=== PATIENT | female | born 1945 | race Caucasian/White ===

== ENCOUNTER 2016-05-22 10:30 | Observation (INO) | payer OTHER ==
[~2016-05-22] VITALS: Ht 160 cm; Wt 90.7 kg
[~2016-05-22 10:30] MED LIST: ASPI-1093 PO; FLUO40CA PO; LORA-476 PO; LOSA50TA39 PO; METF1000 PO; METF500T4 PO; OMEP40EC1 PO; SIMV40TA1 PO; VITA-144 PO
[2016-05-22 10:54] VITALS: BP 133/69
--- NOTE | 2016-05-22 10:59 | NUR ---
PATIENT AMBULATED TO ER BED 5.
--- NOTE | 2016-05-22 10:59 | NUR ---
70/F BIB FAMILY C/O MECHANICAL FALL AT HOME YESTERDAY AND NOW C/O LEFT ARM, HEADACHE & BILAT KNEES PAIN. PT STATES SHE HIT HER HEAD AFTER SHE FELL, BUT SHE ALSO HAD A FALL 1 YEAR AGO DURING WHICH SHE HIT HER HEAD AND FEELS THE SAME PAIN. HX DM, HTN, OSTEOPOROSIS.PT DENIES LOC. PT DENIES N/V/D; SKIN IS PINK/WARM/DRY; AAOX4 WITH EVEN AND STEADY GAIT; LUNGS CLEAR BL; HR EVEN AND REGULAR; PT DENIES ANY FEVER, CP, SOB, OR COUGH AT THIS TIME; PATIENT STATES PAIN OF 8/10 AT THIS TIME; VSS; PATIENT POSITIONED FOR COMFORT; HOB ELEVATED; BEDRAILS UP X2; BED DOWN. ER MD MADE AWARE OF PT STATUS.
--- NOTE | 2016-05-22 11:03 | NUR ---
Patient being evaluated by physician at bedside.
[2016-05-22] MEDS ORDERED: fentaNYL 0.05 MG/ML VIAL IVP ONE (11:10)
--- NOTE | 2016-05-22 11:20 | NUR ---
Patient appears to be resting comfortably in bed. Respirations even and unlabored.WILL CONTINUE TO MONITPR
--- NOTE | 2016-05-22 11:33 | NUR ---
PT ARRIVED TO UNIT FROM ER VIA GURNEY. PT IS AAOX4, ON ROM AIR, IV TO RIGHT AC 20G PATENT AND INTACT. SKIN INTACT. PT STATES NO CHEST PAIN AT THIS TIME. INITIAL ASSESSMENT COMPLETED. ORIENTED PT TO ROOM AND ENVIRONMENT. DISCUSSED PLAN OF CARE WITH PT, PT VERBALIZED UNDERSTANDING. ALL NEEDS MET. CALL LIGHT WITHIN MADDIE Addendum: 05/22/16 at 1338 by Ladonna Logan RN CALL LIGHT WITHIN REACH. WILL CONTINUE TO MONITOR.
[2016-05-22 11:42] LABS: BASOPHILS # (AUTO) 0.1 K/uL (0.00-0.22); BASOPHILS % (AUTO) 2.7 % (0.0-2.0); EOSINOPHILS # (AUTO) 0.1 K/uL (0-0.4); HEMATOCRIT 34.7 % (36-48); HEMOGLOBIN 11.1 g/dL (12.0-16.0); LYMPHOCYTES # (AUTO) 1.3 K/uL (2.5-16.5); LYMPHOCYTES % (AUTO) 26.2 % (20.5-51.1); MEAN CORPUSCULAR HEMOGLOBIN 26 pg (27-31); MEAN CORPUSCULAR HGB CONC 32 g/dL (33-37); MEAN CORPUSCULAR VOLUME 82 fL (80-94); MONOCYTES # (AUTO) 0.5 K/uL (0.8-1.0); MONOCYTES % (AUTO) 10.2 % (1.7-9.3); NEUTROPHILS # (AUTO) 3.1 K/uL (1.8-7.7); NEUTROPHILS % (AUTO) 58.9 % (42.2-75.2); PLATELET COUNT (AUTO) 230 K/uL (140-450); RED BLOOD CELL COUNT(AUTO) 4.21 MIL/uL (4.20-5.40); RED CELL DISTRIBUTION WIDTH 14.8 % (11.6-13.7); WHITE BLOOD COUNT (AUTO) 5.1 K/uL (4.8-10.8)
[2016-05-22 11:50] LABS: ANION GAP 11.3 (8-16); CARBON DIOXIDE 30.5 mmol/L (21-32); CREATININE 0.8 mg/dL (0.6-1.3); POTASSIUM 3.8 mmol/L (3.5-5.1)
[2016-05-22 11:56] LABS: ALBUMIN 3.7 g/dL (3.4-5.0); INR 1.1 (0.8-1.2); PARTIAL THROMBOPLASTIN TIME 26.1 secs (22-35.6); PROTHROMBIN TIME 10.5 secs (10.8-13.4); TOTAL BILIRUBIN 0.2 mg/dL (0.0-1.0); TOTAL PROTEIN, SERUM 7.2 g/dL (6.4-8.2)
[2016-05-22] MEDS ORDERED: MORPHINE SULFATE 2 MG/ML SYR IVP PRN (12:40)
[2016-05-22] MEDS ORDERED: MORPHINE SULFATE 4 MG/ML SYR IVP PRN (12:40)
[2016-05-22] MEDS ORDERED: ONDANSETRON 4 MG/2 ML VIAL IVP PRN (12:40)
[2016-05-22] MEDS ORDERED: INSULIN LISPRO SLIDING SCALE 100 UNITS/ML VIAL SUBQ PRN (13:00)
[2016-05-22] MEDS ORDERED: DEXTROSE 50% 50 ML SYR IVP PRN (13:00)
--- NOTE | 2016-05-22 13:00 | NUR ---
CALL TO REPORT PT. SHARI GREENWOOD WILL CALL BACK IN 5 MINS
--- NOTE | 2016-05-22 13:16 | NUR ---
Patient will be admitted to care of QUINCY. Admited to TELE. Will go to [id number]. Belongings list completed. Report to
--- NOTE | 2016-05-22 13:25 | NUR ---
CHECKED IN ON PT, ALL NEEDS MET. FAMILY AT BEDSIDE. CALL LIGHT WITHIN RAECH. WILL CONTINUE TO MONITOR.
[2016-05-22 13:30] VITALS: BP 145/70
[2016-05-22 15:52] VITALS: BP 148/62
--- NOTE | 2016-05-22 16:05 | NUR ---
PT CURRENTLY RESTING IN BED. ALL NEEDS MET. CALL LIGHT WITHIN REACH. WILL CONTINUE TO MONITOR.
[2016-05-22] MEDS ORDERED: metFORMIN 500 MG TAB PO SCH (17:00)
[2016-05-22] MEDS: BLOOD GLUCOSE MONITORING 1 DEV DEV FS SCH ×2 (17:01→21:00)
--- NOTE | 2016-05-22 18:05 | NUR ---
PT CURRENTLY VISITING WITH FAMILY. PT STATES NO CHEST PAIN. ALL NEEDS MET. CALL LIGHT WITHIN REACH.
--- NOTE | 2016-05-22 19:32 | NUR ---
ENDORSED PLAN OF CARE TO NIGHT NURSE. PT IN STABLE CONDITION.
[2016-05-22 20:00] VITALS: BP 139/59
--- NOTE | 2016-05-22 20:10 | NUR ---
SEEN PT AWAKE, ALERT AND ORIENTED, APPEARS COMFORTABLE. INITIAL ASSESSMENT. VITAL SIGNS CHECKED. PT DENEIS ANY DISCOMFORT OR CHEST PAIN AT THIS TIME. PT UP AND ABOUT IN HER ROOM. PLAN OF CARE DISCUSSED. PT VERBALIZED UNDERSTANDING. SAFETY ENSURED. CALL LIGHT W/IN REACH.
[2016-05-22] MEDS ORDERED: SIMVASTATIN 40 MG TAB PO SCH (21:00)
--- NOTE | 2016-05-22 21:00 | NUR ---
BLOOD SUGAR CHECKED:118. NO COVERAGE NEEDED. PT GIVEN SHARON CRACKERS FOR SNACKS.
[2016-05-22] MEDS ORDERED: LORazepam 1 MG TAB PO SCH ×2 (23:00→23:30)
--- NOTE | 2016-05-22 23:30 | NUR ---
PT GIVEN ATIVAN PO ORDERED FOR SLEEP. PT TAKES IT AT HOME. EXTRA PILLOW GIVEN PER REQUEST. PT DENIES ANY DISCOMFORT. WILL CONTINUE TO MONITOR.
[2016-05-23] VITALS: BP 131/71
--- NOTE | 2016-05-23 02:00 | NUR ---
SEEN PT SLEEPING SOUNDLY ON HER SIDE. CALL LIGHT W/IN REACH.
[2016-05-23 04:00] VITALS: BP 131/67
--- NOTE | 2016-05-23 04:15 | NUR ---
SEEN PT AWAKE. VITAL SIGNS CHECKED. PT DENIES ANY DISCOMFORT. PT ASKED FOR UNDERWEAR. PT GIVEN KOTEX WELL. CALL LIGHT W/IN REACH.
[2016-05-23 06:27] LABS: CHOL/HDL RATIO 2.5 (1-4.5)
[2016-05-23 06:28] LABS: ANION GAP 8.5 (8-16); CALCIUM 8.7 mg/dL (8.5-10.1); CARBON DIOXIDE 31.2 mmol/L (21-32); CREATININE 0.8 mg/dL (0.6-1.3); POTASSIUM 3.7 mmol/L (3.5-5.1)
[2016-05-23] MEDS ORDERED: PANTOPRAZOLE 40 MG TABEC PO SCH (06:30)
[2016-05-23 06:35] LABS: MAGNESIUM 1.8 mg/dL (1.8-2.4); PHOSPHORUS 3.6 mg/dL (2.5-4.9)
[2016-05-23 06:40] LABS: BASOPHILS # (AUTO) 0.1 K/uL (0.00-0.22); BASOPHILS % (AUTO) 1.6 % (0.0-2.0); EOSINOPHILS # (AUTO) 0.1 K/uL (0-0.4); EOSINOPHILS % (AUTO) 2.1 % (0.0-4.0); HEMATOCRIT 33.1 % (36-48); HEMOGLOBIN 10.6 g/dL (12.0-16.0); LYMPHOCYTES # (AUTO) 1.3 K/uL (2.5-16.5); MEAN CORPUSCULAR HEMOGLOBIN 26 pg (27-31); MEAN CORPUSCULAR HGB CONC 32 g/dL (33-37); MEAN CORPUSCULAR VOLUME 81 fL (80-94); MONOCYTES # (AUTO) 0.5 K/uL (0.8-1.0); MONOCYTES % (AUTO) 13.9 % (1.7-9.3); NEUTROPHILS # (AUTO) 1.8 K/uL (1.8-7.7); NEUTROPHILS % (AUTO) 49.4 % (42.2-75.2); PLATELET COUNT (AUTO) 201 K/uL (140-450); RED BLOOD CELL COUNT(AUTO) 4.07 MIL/uL (4.20-5.40); RED CELL DISTRIBUTION WIDTH 14.6 % (11.6-13.7); WHITE BLOOD COUNT (AUTO) 3.8 K/uL (4.8-10.8)
[2016-05-23] MEDS: BLOOD GLUCOSE MONITORING 1 DEV DEV FS SCH ×2 (06:41→11:29)
--- NOTE | 2016-05-23 07:15 | NUR ---
RECEIVED REPORT FROM THE [employer] PRESS LABORER NURSE AT BEDSIDE FOR CONTINUITY OF CARE. PT IS AWAKE AND ALERT AND ORIENTED. PT STATED SHE SLEPT WELL LAST NIGHT. PT HAS NO COMPLAINTS AT THIS MOMENT. NOTED THE IV ON R AC 20G SL. PT IS STRICT I AND O. PER [employer] PRESS LAB[employer]ER, PT IS AMBULATORY TO THE BATHROOM.
--- NOTE | 2016-05-23 07:35 | NUR ---
PTS V/S IS WITHIN NORMAL RANGE. DENIES PAIN.
[2016-05-23 08:00] VITALS: BP 141/65
--- NOTE | 2016-05-23 08:14 | NUR ---
FNS REFERRAL RECEIVED ON 05/22/16 FOR "NOT APPLICABLE." THIS DOES NOT MEET HIGH NUTRITIONAL RISK CRITERIA. PATIENT HAS BEEN SCREENED AND CATEGORIZED MODERATE NUTRITION RISK. PATIENT WILL BE SEEN WITHIN 3-5 DAYS OF ADMISSION. 05/25/16-05/27/[address]
[2016-05-23] MEDS ORDERED: VITAMIN E PO SCH (09:00)
[2016-05-23] MEDS ORDERED: FLUOXETINE HYDROCHLORIDE PO SCH (09:00)
[2016-05-23] MEDS ORDERED: ASPIRIN PO SCH (09:00)
[2016-05-23] MEDS ORDERED: FLUoxetine 20 MG CAP PO SCH (09:00)
[2016-05-23] MEDS ORDERED: LORazepam 1 MG TAB PO SCH ×2 (09:00→21:00)
[2016-05-23] MEDS ORDERED: NON-FORMULARY ITEM (Omeprazole* (Prilosec*) 40 MG) PO SCH (09:00)
[2016-05-23] MEDS ORDERED: ECOTRIN 81 MG TABEC PO SCH (09:00)
[2016-05-23] MEDS ORDERED: LOSARTAN 50 MG TAB PO SCH (09:00)
[2016-05-23] MEDS ORDERED: metFORMIN 500 MG TAB PO SCH (09:00)
--- NOTE | 2016-05-23 09:30 | NUR ---
ADMINISTERED MORNING MEDS. PT TOLERATED WELL. PT WAS WONDERING WHEN DR. BROWN WILL BE HERE. I TOLD HER I AM NOT CERTAIN BUT HE WILL BE HERE FOR THE CONSULT. WILL CONTINUE TO MONITOR PT.
--- NOTE | 2016-05-23 10:48 | NUR ---
PT AMBULATING IN THE HALLS. ASKED FOR A PAIR OF CLEAN UNDERWEAR. GAVE HER A PAIR. PT AMBULATED BACK TO ROOM AND BACK TO BED. WILL CONTINUE TO MONITOR PT.
[2016-05-23 12:00] VITALS: BP 102/68
--- NOTE | 2016-05-23 12:20 | NUR ---
DR. BROWN WANTS TO ORDER A CLARIBEL STRESS TEST FOR TOMORROW AT 1230. ORDER PUT IN. PT NOTIFIED THAT SHE WILL BE NPO AFTER MIDNIGHT AND CLARIBEL STRESS TEST TOMORROW. NO CAFFEINE STARTING TODAY. PT VERBALIZED UNDERSTANDING.
--- NOTE | 2016-05-23 13:54 | NUR ---
SPOKE TO PT. PT STATED THAT SHE REFUSED THE CLARIBEL SCAN BECAUSE SHE HAD ONE ABOUT A YEAR AGO AND IT WAS NORMAL. SHE IS FEELING BETTER SO SHE WANTS TO BE DISCHARGE TODAY. WILL WAIT ON DR. MATHEW AND SEE WHAT HE SAYS. HER DAUGHTER CAN PICK HER UP AFTER WORK AROUND 6PM. I TOLD HER, WHEN DR. MATHEW D/C'S HER, WE CAN WORK AROUND HER DAUGHTER'S SCHEDULE. NO COMPLAINTS. NO SIGNS OF DISTRESS. WILL CONTINUE TO MONITOR PT.
--- NOTE | 2016-05-23 15:40 | NUR ---
DR. MATHEW IS HERE. TO SEE PT. WAITING FOR DC. PT IS SLEEPING. WILL KEEP MONITORING PT.
--- NOTE | 2016-05-23 17:50 | NUR ---
GAVE PT DISCHARGE INSTRUCTIONS. ANSWERED ALL QUESTIONS. PT VERBALIZED UNDERSTANDING. PT SIGNED ALL APPROPRIATE FORMS. REMOVED ALL ARM BANDS, TELE MONITOR, IV CANNULA INTACT. PT TOLERATED WELL. PT IS IN HER PERSONAL CLOTHES. ALL HER PERSONAL BELONGING IN BAG, ALL READY TO LEAVE. DAUGHTER WILL BE HERE SOON. WILL LET ME KNOW.
--- NOTE | 2016-05-23 18:08 | NUR ---
PT WHEELED OUT BY [place]. PT IN STABLE CONDITION. ALL PERSONAL BELONGINGS WITH HER. DAUGHTER WAITING IN THE TURN ABOUT IN FRONT OF THE HOSPITAL.
[2016-05-24] MEDS ORDERED: VITAMIN E 400 IU CAPLF PO SCH (09:00)
[2016-05-24] MEDS ORDERED: VITAMIN E PO SCH (09:00)
[2016-05-24] MEDS ORDERED: VITAMIN E 400 MG PO SCH (09:00)
[2016-05-24] MEDS ORDERED: REGADENOSON 0.4 MG/5 ML SYR IV SCH (12:30)
== END 2016-05-23 18:08 | disposition home or self-care (01) ==
LOC: MED 10:30 → MMU 12:39 → MTU 19:34
PROVIDERS: ADMIT Internal Medicine Pulmonary Disease; ATTEND Internal Medicine Pulmonary Disease
DX: R07.89 Other chest pain (principal); S09.90XA Unspecified injury of head, initial encounter; E11.9 Type 2 diabetes mellitus without complications; I10 Essential (primary) hypertension; E78.5 Hyperlipidemia, unspecified; M19.90 Unspecified osteoarthritis, unspecified site; K21.9 Gastro-esophageal reflux disease without esophagitis; W19.XXXA Unspecified fall, initial encounter; Y93.89 Activity, other specified; Y92.89 Other specified places as the place of occurrence of the external cause; Y99.8 Other external cause status
CPT/HCPCS: 36415; 70450; 71010; 80048; 80053; 80061; 82948; 83036; 83735; 83880; 84100; 84484; 85025; 85610; 85730; 87081; 93005; 93307; 96372; 96374; 99285; G0378; J1815; J3010; Q0092

== ENCOUNTER 2017-06-07 10:26 | Inpatient (IN) | payer OTHER ==
[~2017-06-07] VITALS: Ht 160 cm; Wt 94.8 kg
[2017-06-07 10:30] VITALS: BP 143/85
[2017-06-07] MEDS ORDERED: NITROGLYCERIN 2% 1 GM PKT TP ONE (10:30)
[2017-06-07] MEDS ORDERED: NACL 0.9% 1,000 ML IV ONE (10:30)
[2017-06-07] MEDS ORDERED: ASPIRIN 81 MG TAB.CHEW PO ONE (10:30)
--- NOTE | 2017-06-07 10:30 | NUR ---
Patient transferred to bed 3 via wheelchair by tech. RN evaluating patient at bedside.
--- NOTE | 2017-06-07 10:32 | NUR ---
71/f bib daughter with C/O INTERMITTENT UNPROVOKED NON RADIATING CHEST PAIN X 2 WKS DIZZINESS X 2 DAYS ---ADDS SHE HAD MECHANICAL FALL AT HOME 3 time in 1 MONTH AGO, HEAD INJURY. denies loc. HX---CAD, HTN, DM, RA, OSTEOPOROSIS, OD BLIND, ANXIETY RX---LOSARTAN 10MG, METFORMIN 850MG, ATIVAN 2MG, Atorvastatin, TYLENOL. SKIN IS PINK/WARM/DRY; AAOX4 WITH EVEN AND STEADY GAIT; LUNGS CLEAR BL. PT DENIES ANY FEVER, CP, SOB, OR COUGH AT THIS TIME; PATIENT STATES PAIN OF 0/10 AT THIS TIME; VSS; PATIENT POSITIONED FOR COMFORT; HOB ELEVATED; BEDRAILS UP X2; BED DOWN. ER MD MADE AWARE OF PT STATUS.
--- NOTE | 2017-06-07 10:49 | NUR ---
Dr. Pinto evaluating patient at bedside.
[2017-06-07 10:58] LABS: BASOPHILS % (AUTO) 0.8 % (0.0-2.0); EOSINOPHILS # (AUTO) 0.1 K/uL (0-0.4); EOSINOPHILS % (AUTO) 1.7 % (0.0-4.0); HEMATOCRIT 33.5 % (36-48); HEMOGLOBIN 10.7 g/dL (12.0-16.0); LYMPHOCYTES # (AUTO) 1.1 K/uL (2.5-16.5); LYMPHOCYTES % (AUTO) 28.1 % (20.5-51.1); MEAN CORPUSCULAR HEMOGLOBIN 25 pg (27-31); MEAN CORPUSCULAR HGB CONC 32 g/dL (33-37); MONOCYTES # (AUTO) 0.4 K/uL (0.8-1.0); MONOCYTES % (AUTO) 10.2 % (1.7-9.3); NEUTROPHILS # (AUTO) 2.4 K/uL (1.8-7.7); NEUTROPHILS % (AUTO) 59.2 % (42.2-75.2); PLATELET COUNT (AUTO) 243 K/uL (140-450); RED CELL DISTRIBUTION WIDTH 16.8 % (11.6-13.7); WHITE BLOOD COUNT (AUTO) 4.1 K/uL (4.8-10.8)
[2017-06-07 11:07] LABS: ANION GAP 11.9 (8-16); CARBON DIOXIDE 27.9 mmol/L (21-32); CHLORIDE 102 mmol/L (98-107); CREATININE 0.8 mg/dL (0.6-1.3); GLUCOSE 165 mg/dL (74-106); POTASSIUM 3.8 mmol/L (3.5-5.1); SODIUM SERUM 138 mmol/L (136-145); UREA NITROGEN, BLOOD 11 mg/dL (7-18)
--- NOTE | 2017-06-07 11:10 | NUR ---
PT TAKEN TO CT VIA GURJAQUI ACCOMPANIED BY [employer].
[2017-06-07 11:11] LABS: PROTHROMBIN TIME 10.6 secs (10.8-13.4)
[2017-06-07 11:13] LABS: ALBUMIN 3.5 g/dL (3.4-5.0); ASPARTATE AMINOTRANSFERASE 34 U/L (15-37); TOTAL BILIRUBIN 0.2 mg/dL (0.0-1.0)
--- NOTE | 2017-06-07 12:57 | NUR ---
Patient appears to be resting comfortably in bed. BP 140/62, PULSE OX 96%, Respirations even and unlabored. C/O CHEST PAIN 04/19 BUT DON'T WANT PAIN MED AT THIS TIME. WILL CONTINUE TO MONITOR.
--- NOTE | 2017-06-07 15:00 | NUR ---
Patient will be admitted to care of DR POMPA. Admited to TELE. Will go to room 119A. Belongings list completed. Report to SELVIN MCCARTHY.
[2017-06-07 15:10] VITALS: BP 141/48
--- NOTE | 2017-06-07 15:10 | NUR ---
PATIENT WAS TRANSFERRED FROM ER. REPORT WAS GIVEN AT BEDSIDE. VS IS TAKEN, MRSA WAS SWABBED. PATIENT IS AWAKE, ALERT. RESPIRATION EVEN, UNLABOR ON ROOM AIR. SKIN DRY AND WARM. IV PATENT AND INTACT. DENIED CHEST PAIN, SOB AT THIS TIME. PATIENT WAS ORIENTED TO ROOM, STAFF, AND CALL LIGHT. PLAN OF CARE WAS DISCUSSED WITH PATIENT. BED AT LOW POSITION, SIDE RAILS UP. CALL LIGHT WITHIN REACH
[2017-06-07] MEDS ORDERED: ACETAMINOPHEN 325 MG TAB PO PRN (16:00)
[2017-06-07] MEDS ORDERED: MORPHINE SULFATE 4 MG/ML SYR IVP PRN (16:00)
[2017-06-07] MEDS ORDERED: ONDANSETRON 4 MG/2 ML VIAL IVP PRN (16:00)
[2017-06-07] MEDS ORDERED: INSULIN LISPRO SLIDING SCALE 100 UNITS/ML VIAL SUBQ PRN (16:05)
[2017-06-07] MEDS: BLOOD GLUCOSE MONITORING 1 DEV DEV FS SCH ×2 (16:11→20:11)
[2017-06-07] MEDS: metFORMIN 500 MG TAB PO SCH (16:43)
--- NOTE | 2017-06-07 17:00 | NUR ---
PATIENT AWAKE, ALERT. RESPIRATION EVEN, UNLABOR ON ROOM AIR. DR. GREENFIELD IS AT BEDSIDE. NO DISTRESS NOTED AT THIS TIME. MED WAS GIVEN PER ORDER. CALL LIGHT WITHIN REACH
--- NOTE | 2017-06-07 18:43 | NUR ---
PATIENT AWAKE, ALERT. RESPIRATION EVEN, UNLABOR ON ROOM AIR. DENIED CHEST PAIN, SOB. NO DISTRESS NOTED AT THIS TIME. IV PATENT AND INTACT. CALL LIGHT WITHIN REACH
--- NOTE | 2017-06-07 19:24 | NUR ---
ENDORSEMENT GIVEN TO HEALTH TECH NURSE. PATIENT IS STABLE AT THIS TIME
--- NOTE | 2017-06-07 19:25 | NUR ---
RECEIVED REPORT FROM DAY SHIFT NURSE LINDA-SHARI. PT AOX4, ON ROOM AIR, IV RIGHT AC #20G SALINE LOCK. RIGHT EYE BLINDNESS. PT ABLE TO AMBULATE. NO S/S OF RESPIRATORY DISTRESS OR DISCOMFORT AT THIS TIME. DISCUSSED PLAN OF CARE AND PT VERBALIZED UNDERSTANDING. UPDATED WHITEBOARD. BED IN LOWEST POSITION, BED BREAKS LOCKED. BED SIDE TABLE AND CALL LIGHT WITHIN REACH. WILL CONTINUE TO MONITOR.
[2017-06-07 19:27] LABS: CREATINE KINASE MB 0.6 ng/mL (0-3.6)
[2017-06-07 20:00] VITALS: BP 137/58
--- NOTE | 2017-06-07 20:11 | NUR ---
BLOOD GLUCOSE 105. NO INSULIN GIVEN. SNACKS PROVIDED. WILL CONTINUE TO MONITOR.
--- NOTE | 2017-06-07 20:30 | NUR ---
SCHEDULED MEDICATIONS GIVEN. PT C/O HEADACHE AND TYLENOL WAS GIVEN. WILL CONTINUE TO MONITOR.
[2017-06-07] MEDS ORDERED: SIMVASTATIN 40 MG TAB PO SCH (21:00)
--- NOTE | 2017-06-07 22:30 | NUR ---
PT SLEEPING AT THIS TIME. WILL CONTINUE TO MONITOR.
[2017-06-08] VITALS: BP 118/42
--- NOTE | 2017-06-08 | NUR ---
VITAL SIGNS TOLERATED WELL. PT CONTINUES TO SLEEP. WILL CONTINUE TO MONITOR.
--- NOTE | 2017-06-08 01:35 | NUR ---
PT AMBULATED TO THE RESTROOM AND DISCONNECTED HER IV WHILE STILL RUNNING. PT SEEMS CONFUSED AND DROWSY. RE-CONNECTED IV. PT QUICKLY FELL BACK ASLEEP. WILL CONTINUE TO MONITOR. Addendum: 06/08/17 at 0212 by Lia Parekh RN PLEASE DISREGARD. WRONG PATIENT.
--- NOTE | 2017-06-08 02:00 | NUR ---
PT CONTINUES TO SLEEP. WILL CONTINUE TO MONITOR.
[2017-06-08 04:00] VITALS: BP 137/54
--- NOTE | 2017-06-08 04:00 | NUR ---
PT TOLERATED VITAL SIGNS WELL. WILL CONTINUE TO MONITOR.
[2017-06-08] MEDS: BLOOD GLUCOSE MONITORING 1 DEV DEV FS SCH ×3 (05:59→16:21)
--- NOTE | 2017-06-08 06:05 | NUR ---
BLOOD GLUCOSE 99, NO INSULIN NEEDED. SCHEDULED MEDICATION GIVEN. PT TOLERATED WELL. WILL CONTINUE TO MONITOR.
[2017-06-08] MEDS ORDERED: PANTOPRAZOLE 40 MG TABEC PO SCH (06:30)
--- NOTE | 2017-06-08 07:10 | NUR ---
ENDORSED PT CARE TO DAY SHIFT NURSE DOMINGUEZ-RN FOR CONTINUITY OF CARE. PT STABLE AT THIS TIME.
--- NOTE | 2017-06-08 07:11 | NUR ---
RECEIVED REPORT FROM SAMPLE WEAVER NURSE AT BEDSIDE FOR CONTINUITY OF CARE. PATIENT AOX4, AMBULATES ON STEADY GAIT. RESPIRATIONS EVEN AND UNLABORED ON ROOM AIR. NO SIGNS OF DISTRESS OR SOB NOTED. PATIENT DENIES PAIN. IV INTACT, PATENT, AND ASYMPTOMATIC, SALINE LOCK. SAFETY PRECAUTION IN PLACE, CALL LIGHT WITHIN REACH. WILL CONTINUE TO MONITOR PATIENT.
[2017-06-08 08:00] VITALS: BP 145/57
[2017-06-08] MEDS ORDERED: metFORMIN 500 MG TAB PO SCH (09:00)
[2017-06-08] MEDS ORDERED: LOSARTAN 50 MG TAB PO SCH (09:00)
[2017-06-08] MEDS ORDERED: ECOTRIN 81 MG TABEC PO SCH (09:00)
[2017-06-08] MEDS ORDERED: VITAMIN E PO SCH (09:00)
[2017-06-08] MEDS ORDERED: FLUOXETINE HYDROCHLORIDE PO SCH (09:00)
[2017-06-08] MEDS ORDERED: ENOXAPARIN 30 MG/0.3 ML SYR SUBQ SCH (09:00)
[2017-06-08] MEDS ORDERED: NON-FORMULARY ITEM (Omeprazole* (Prilosec*) 40 MG) PO SCH (09:00)
[2017-06-08] MEDS ORDERED: LORazepam 1 MG TAB PO SCH (09:00)
[2017-06-08] MEDS ORDERED: ASPIRIN 81 MG TAB.CHEW PO SCH (09:00)
[2017-06-08] MEDS ORDERED: ASPIRIN PO SCH (09:00)
[2017-06-08] MEDS ORDERED: FLUoxetine 20 MG CAP PO SCH (09:00)
--- NOTE | 2017-06-08 09:15 | NUR ---
PATIENT AMBULATED TO BATHROOM ON STEADY GAIT AND VOIDED. NO SIGNS OF DISTRESS OR SOB NOTED ON ROOM AIR. PATIENT DENIES CHEST PAIN. SAFETY PRECAUTION IN PLACE, CALL LIGHT WITHIN REACH. WILL CONTINUE TO MONITOR PATIENT.
[2017-06-08 09:25] LABS: BASOPHILS % (AUTO) 0.9 % (0.0-2.0); EOSINOPHILS # (AUTO) 0.1 K/uL (0-0.4); EOSINOPHILS % (AUTO) 2.2 % (0.0-4.0); HEMATOCRIT 35.3 % (36-48); HEMOGLOBIN 11.2 g/dL (12.0-16.0); LYMPHOCYTES # (AUTO) 1.4 K/uL (2.5-16.5); LYMPHOCYTES % (AUTO) 28.1 % (20.5-51.1); MEAN CORPUSCULAR HEMOGLOBIN 25 pg (27-31); MEAN CORPUSCULAR HGB CONC 32 g/dL (33-37); MEAN CORPUSCULAR VOLUME 78.4 fL (80-94); MONOCYTES # (AUTO) 0.5 K/uL (0.8-1.0); NEUTROPHILS % (AUTO) 58.8 % (42.2-75.2); PLATELET COUNT (AUTO) 271 K/uL (140-450); RED CELL DISTRIBUTION WIDTH 16.6 % (11.6-13.7); WHITE BLOOD COUNT (AUTO) 5.1 K/uL (4.8-10.8)
--- NOTE | 2017-06-08 09:44 | NUR ---
ADMINISTERED ORDERED MEDICATIONS. PATIENT TOLERATED THEM WELL. NO DISTRESS OR SOB NOTED ON ROOM AIR. PATIENT DENIES PAIN AT THIS MOMENT. SAFETY PRECAUTION IN PLACE, CALL LIGHT WITHIN REACH. WILL CONTINUE TO MONITOR PATIENT.
[2017-06-08 10:04] LABS: ALBUMIN 3.6 g/dL (3.4-5.0); ANION GAP 12.4 (8-16); ASPARTATE AMINOTRANSFERASE 35 U/L (15-37); CARBON DIOXIDE 28.6 mmol/L (21-32); CHLORIDE 103 mmol/L (98-107); CREATININE 0.8 mg/dL (0.6-1.3); GLUCOSE 113 mg/dL (74-106); SODIUM SERUM 140 mmol/L (136-145); TOTAL BILIRUBIN 0.3 mg/dL (0.0-1.0); UREA NITROGEN, BLOOD 8 mg/dL (7-18)
--- NOTE | 2017-06-08 10:54 | NUR ---
ELZA FROM CASE MANAGEMENT CALLED ASKING ABOUT PATIENT'S POSSIBLE DISCHARGE TODAY. INFORMED HER ABOUT PATIENT'S STATUS. SHE VERBALIZED UNDERSTANDING. IF ANYTHING CHANGES, ELZA REQUEST THAT SHE BE CALLED AT [phone]. RN VERBALIZED UNDERSTANDING.
[2017-06-08 12:00] VITALS: BP 107/50
[2017-06-08 12:01] LABS: CREATINE KINASE MB 0.6 ng/mL (0-3.6)
--- NOTE | 2017-06-08 12:40 | NUR ---
PATIENT SITTING BY SIDE OF BED EATING LUNCH, NO SIGNS OF DISTRESS OR SOB NOTED ON ROOM AIR. PATIENT DENIES CHEST PAIN. SAFETY PRECAUTION IN PLACE, CALL LIGHT WITHIN REACH. WILL CONTINUE TO MONITOR PATIENT.
--- NOTE | 2017-06-08 14:30 | NUR ---
DAUGHTER NAYA CALLED, PHONE # [phone], UPDATED HER ON PATIENT'S PLAN OF CARE. PATIENT CURRENTLY GETTING ECHOCARDIOGRAM, INFORMED DAUGHTER THAT PATIENT WILL CALL BACK WHEN THE PROCEDURE FINISHES. SHE VERBALIZED UNDERSTANDING.
[2017-06-08 16:00] VITALS: BP 122/47
--- NOTE | 2017-06-08 16:00 | NUR ---
ELZA FROM CASE MANAGEMENT CALLED ASKING ABOUT PATIENT'S POSSIBLE DISCHARGE TODAY. INFORMED HER ABOUT PATIENT'S STATUS. DOCTOR STILL HAS NOT IN TO SEE HER YET. SHE VERBALIZED UNDERSTANDING. IF ANYTHING CHANGES, ELZA REQUEST THAT SHE BE CALLED AT [phone]. RN VERBALIZED UNDERSTANDING.
[2017-06-08] MEDS: metFORMIN 500 MG TAB PO SCH (16:33)
--- NOTE | 2017-06-08 17:15 | NUR ---
DR. POMPA TO SEE THE PATIENT. DISCHARGE INSTRUCTIONS IN, PATIENT AWARE. WILL START THE DISCHARGE PROCESS. PATIENT CURRENTLY RESTING IN BED, NO SIGNS OF DISTRESS OR SOB NOTED ON ROOM AIR. PATIENT DENIES CHEST PAIN. BLOOD SUGAR 123, NO COVERAGE NEEDED. ORDERED MEDICATIONS GIVEN. PATIENT TOLERATED IT WELL. SAFETY PRECAUTION IN PLACE, CALL LIGHT WITHIN REACH. WILL CONTINUE TO MONITOR PATIENT.
--- NOTE | 2017-06-08 18:10 | NUR ---
DISCHARGE INSTRUCTIONS AND EDUCATION GIVEN TO PATIENT. PATIENT VERBALIZED UNDERSTANDING. IV REMOVED, IV CATHETER INTACT, MINIMAL BLOOD NOTED. ID BANDS CUT. TELE MONITOR REMOVED. PATIENT WILL NOW GET DRESSED AND BE READY TO BED DISCHARGED HOME. PATIENT CALLED DAUGHTER NAYA TO COME PICK HER UP.
--- NOTE | 2017-06-08 18:30 | NUR ---
PATIENT AMBULATED OFF FLOOR WITH RN. PATIENT TOOK ALL HER BELONGINGS WITH HER. PATIENT IN STABLE CONDITION.
--- NOTE | 2017-06-08 19:15 | NUR ---
CALLED ELZA, ANIMAL CARE SPECIALIST, TO INFORM HER OF PATIENT'S DISCHARGE. ELZA VERBALIZED UNDERSTANDING.
--- NOTE | 2017-06-09 16:51 | NUR ---
RETRO ER REPORT, H&P AND CONSULT FAXED TO [facility] [phone] PHONE MELISSA [phone]
== END 2017-06-08 18:30 | disposition home or self-care (01) | DRG 206 ==
LOC: MED 10:26 → MTU 14:28
PROVIDERS: ADMIT Hospitalist; ATTEND Hospitalist
DX: M94.0 Chondrocostal junction syndrome [Tietze] (principal); E11.9 Type 2 diabetes mellitus without complications; E78.5 Hyperlipidemia, unspecified; I10 Essential (primary) hypertension; F41.9 Anxiety disorder, unspecified; Z79.899 Other long term (current) drug therapy; Z90.710 Acquired absence of both cervix and uterus; Z79.84 Long term (current) use of oral hypoglycemic drugs
CPT/HCPCS: 36415; 70450; 71045; 80053; 82550; 82553; 82948; 84484; 85025; 85610; 85730; 87081; 93005; 96360; 96361; 99285; J1650; J1815